=== PATIENT | female | born 2000 | race Two or more races ===

== ENCOUNTER → 2025-07-30 | Outpatient (CLI) | payer MEDICAID, SELFPAY ==
--- NOTE | 2025-07-30 09:32 | XR_ITS ---
Examination: Abdomen sonogram, complete Date and time of exam: July 30, 2025, 1005 hours INDICATIONS: Abnormal laboratory blood values on examination 2 months ago, right upper abdominal pain left upper abdominal pain 5 months. Technique: Multiple real-time grayscale transabdominal sonographic images of the abdomen have been obtained. Findings: Normal gallbladder Normal common bile duct 0.2 cm Pancreatic head 2.5 cm Aorta not enlarged. Liver 14.7 cm fatty infiltration no focal liver lesion Normal hepatopetal portal venous flow Patent IVC Right kidney 10.9 cm renal cortex 1.7 cm Left kidney 11.7 cm renal cortex 1.8 cm Mild renal scar formation No hydronephrosis Spleen 9.6 cm IMPRESSION: Normal gallbladder Liver normal size fatty infiltration Bilateral mild renal scar formation
== END | disposition home or self-care (01) ==
LOC: CDIM 09:17
DX: K76.0 Fatty (change of) liver, not elsewhere classified (principal); N28.89 Other specified disorders of kidney and ureter; N18.9 Chronic kidney disease, unspecified
CPT/HCPCS: 76700

== ENCOUNTER → 2025-08-11 | Outpatient (CLI) | payer MEDICAID, SELFPAY ==
--- NOTE | 2025-08-11 15:11 | XR_ITS ---
EXAMINATION: PA lateral chest 2 views Technique when upright PA lateral chest 2 views Date and time: August 11, 2025, 1520 hours INDICATIONS: Shortness of breath beginning 4 months ago. FINDINGS: Normal heart size Lungs are clear. Osseous structures are intact IMPRESSION: No active disease
== END | disposition home or self-care (01) ==
LOC: CDIM 15:03
DX: R06.02 Shortness of breath (principal)
CPT/HCPCS: 71046